=== PATIENT | male | born 1965 ===

== ENCOUNTER 2021-11-21 08:41 | Inpatient (IN) | payer OTHER ==
[~2021-11-21] VITALS: Ht 175.3 cm; Wt 74.8 kg
[2021-11-21 09:38] LABS: HEMOGLOBIN 13.4 gm/dl (14.0-17.5); RED BLOOD COUNT 4.31 M/UL (4.20-5.50); WHITE BLOOD COUNT 20.5 K/UL (4.5-11.0)
[2021-11-21 10:15] LABS: BUN/CREATININE RATIO 18 (0-10)
[2021-11-21] MEDS ORDERED: LISINOPRIL-HCT1 EACH PO (14:51)
[2021-11-21] MEDS ORDERED: METHADOSE10 MG/1 ML PO (16:32)
[2021-11-21] MEDS ORDERED: HYDROCHLOROTH12.5 MG PO (19:27)
[2021-11-22 05:11] LABS: HEMOGLOBIN 11.8 gm/dl (14.0-17.5); RED BLOOD COUNT 3.86 M/UL (4.20-5.50)
[2021-11-22 05:50] LABS: BUN/CREATININE RATIO 12 (0-10)
[2021-11-23 04:12] LABS: HEMOGLOBIN 12.6 gm/dl (14.0-17.5); RED BLOOD COUNT 4.07 M/UL (4.20-5.50); WHITE BLOOD COUNT 15.6 K/UL (4.5-11.0)
[2021-11-23 04:37] LABS: BUN/CREATININE RATIO 9 (0-10)
[2021-11-24 07:45] LABS: HEMOGLOBIN 11.5 gm/dl (14.0-17.5); RED BLOOD COUNT 3.73 M/UL (4.20-5.50)
[2021-11-24 07:46] LABS: WHITE BLOOD COUNT 9.5 K/UL (4.5-11.0)
[2021-11-24 08:29] LABS: BUN/CREATININE RATIO 10 (0-10)
[2021-11-25 08:19] LABS: HEMOGLOBIN 11.4 gm/dl (14.0-17.5); RED BLOOD COUNT 3.74 M/UL (4.20-5.50)
[2021-11-25 08:20] LABS: WHITE BLOOD COUNT 5.6 K/UL (4.5-11.0)
[2021-11-25 08:39] LABS: BUN/CREATININE RATIO 12 (0-10)
[2021-11-25 09:11] LABS: HIV AB/P24 AG SCREEN Non Reactive (Non Reactive)
--- NOTE | 2021-11-25 15:20 | NUR ---
Received call from Dr. Kasper with wound care orders.
[2021-11-26 04:24] LABS: HEMOGLOBIN 11.3 gm/dl (14.0-17.5); RED BLOOD COUNT 3.72 M/UL (4.20-5.50); WHITE BLOOD COUNT 5.8 K/UL (4.5-11.0)
[2021-11-26 04:43] LABS: BUN/CREATININE RATIO 14 (0-10)
[2021-11-27 07:12] LABS: HBSAG SCREEN Negative (Negative); HEP A AB, IGM Negative (Negative); HEP B CORE AB, IGM Negative (Negative); HEP C VIRUS AB >11.0 (0.0-0.9)
[2021-11-27 10:10] LABS: HEMOGLOBIN 11.8 gm/dl (14.0-17.5); RED BLOOD COUNT 3.86 M/UL (4.20-5.50); WHITE BLOOD COUNT 5.8 K/UL (4.5-11.0)
[2021-11-27 10:47] LABS: BUN/CREATININE RATIO 17 (0-10)
--- NOTE | 2021-11-27 17:02 | NUR ---
Dressing changed per providers orders. Old dressing at scat amount of yellow to mild pink dry drainage noted. No drainage noted to wound, edge are well approximated, skin surrounding wound is intact. wound bed is pink in color. Pt tolerated procedure well.
[2021-11-28 05:51] LABS: HEMOGLOBIN 12.9 gm/dl (14.0-17.5); RED BLOOD COUNT 4.2 M/UL (4.20-5.50); WHITE BLOOD COUNT 6.7 K/UL (4.5-11.0)
[2021-11-28 06:08] LABS: BUN/CREATININE RATIO 16 (0-10)
[2021-11-29 06:13] LABS: HEMOGLOBIN 11.8 gm/dl (14.0-17.5); RED BLOOD COUNT 3.88 M/UL (4.20-5.50); WHITE BLOOD COUNT 5.4 K/UL (4.5-11.0)
[2021-11-29 06:41] LABS: BUN/CREATININE RATIO 15 (0-10)
[2021-11-30 06:26] LABS: HEMOGLOBIN 11.3 gm/dl (14.0-17.5); RED BLOOD COUNT 3.77 M/UL (4.20-5.50); WHITE BLOOD COUNT 5.6 K/UL (4.5-11.0)
[2021-11-30 06:48] LABS: BUN/CREATININE RATIO 14 (0-10)
[2021-11-30] MEDS ORDERED: AMOX TR-K CLV1 EAC4 PO (14:55)
[2021-11-30] MEDS ORDERED: LACTINEX TABLET1 EA PO (14:55)
[2021-11-30] MEDS ORDERED: CLEOCIN HCL300 MG PO ×2 (14:55→15:30)
[2021-11-30] MEDS ORDERED: LISINOPRIL-HCT1 EACH PO (16:45)
== END 2021-11-30 17:30 | disposition home or self-care (01) | DRG 854 ==
LOC: ER1 08:41 → CDU 10:37 → MED SURG 4 10:37
PROVIDERS: Emergency Medicine; Internal Medicine; Physician Assistant Medical; ADMIT Internal Medicine
PROC: 3E03329 Introduction of Other Anti-infective into Peripheral Vein, Percutaneous Approach (ICD-10-PCS; principal; 2021-11-21)
PROC: 0JBN0ZZ Excision of Right Lower Leg Subcutaneous Tissue and Fascia, Open Approach (ICD-10-PCS; 2021-11-23)
DX: A41.59 Other Gram-negative sepsis (principal); L03.115 Cellulitis of right lower limb; E87.1 Hypo-osmolality and hyponatremia; L02.415 Cutaneous abscess of right lower limb; I96 Gangrene, not elsewhere classified; Z20.822 Contact with and (suspected) exposure to COVID-19; B96.89 Other specified bacterial agents as the cause of diseases classified elsewhere; I10 Essential (primary) hypertension; M65.88 Other synovitis and tenosynovitis, other site; F10.10 Alcohol abuse, uncomplicated; F17.210 Nicotine dependence, cigarettes, uncomplicated; Z93.0 Tracheostomy status; Z98.890 Other specified postprocedural states; Z79.899 Other long term (current) drug therapy; Z82.49 Family history of ischemic heart disease and other diseases of the circulatory system; Z91.14 Patient's other noncompliance with medication regimen
CPT/HCPCS: 36415; 73630; 73718; 80048; 80053; 80074; 80202; 80307; 82550; 82553; 83036; 83605; 83735; 84100; 85025; 85027; 85652; 86140; 87040; 87070; 87075; 87077; 87205; 87389; 96374; 96375; 96376; 99284; J0295; J0692; J1170; J1650; J2001; J2250; J2704; J2795; J3010; J3370; J7030; J7070; J7120; U0002